=== PATIENT | male | born 2000 | race Two or more races ===

== ENCOUNTER 2023-01-26 13:39 | Outpatient (CLI) | payer OTHER | END 2023-01-26 13:40 | disposition critical access hospital (66) | LOC: EMS 13:39 | DX: S99.912A Unspecified injury of left ankle, initial encounter (principal); X50.9XXA Other and unspecified overexertion or strenuous movements or postures, initial encounter; Y92.414 Local residential or business street as the place of occurrence of the external cause | CPT/HCPCS: A0425; A0429 ==

== ENCOUNTER 2023-01-26 14:11 | Emergency (ER) | payer OTHER ==
--- NOTE | 2023-01-26 14:51 | XRAY Report ---
PROCEDURE: Ankle 3 View LT 4 INDICATIONS: Trauma TECHNIQUE: 3 views of the ankle were acquired. COMPARISON: None. FINDINGS: Bones: No fractures or dislocations. Ankle mortise is normally aligned. No suspicious bony lesions . Soft tissues: No tibiotalar joint effusion. Achilles tendon appears normal. IMPRESSION: No acute bony abnormality. Reviewed by: Omega Carter on 01/26/2023 1:50 PM ELADIO Approved by: Omega Carter on 01/26/2023 1:50 PM [facility] Station ID: [id number]
--- NOTE | 2023-01-26 15:56 | ED Physician Documentation ---
History of Present Illness - Stated complaint Stated Complaint: LT ANKLE INJ - Chief complaint Chief Complaint: Trauma Ext - Additonal information Additional information: 22-year-old male here for evaluation of acute left ankle pain sustained when he had an inversion injury stepping off a curb. No history of previous injury. Review of Systems Musculoskeletal: reports: Joint pain PD PAST MEDICAL HISTORY - Past Medical History Past Medical History: No - Past Surgical History Past Surgical History: No - Present Medications Home Medications: Ambulatory Orders Medication Instructions Recorded Confirmed No Known Home Medications 01/26/23 01/26/23 - Allergies Allergies/Adverse Reactions: Allergies Allergy/AdvReac Type Severity Reaction Status Date / Time No Known Drug Allergies Allergy Verified 01/26/23 14:22 - Social History Does the pt smoke?: No Smoking Status: Never smoker Does the pt drink ETOH?: No Does the pt have substance abuse?: No - Immunizations Immunizations are current?: Yes PD ED PE EXPANDED - Extremities Extremities: Left ankle (Moderate swelling and tenderness of the left lateral malleolus. Reduced rotational movement secondary to pain. No pain at the base of the fifth metatarsal, medial malleolus or Achilles. Neurovascular intact. 2+ DP pulse.) Results - Vitals Vitals: Vital Signs - 24 hr 01/26/23 14:18 Temperature 36.6 C Heart Rate 40 L Respiratory 15 Rate Blood Pressure 143/64 H O2 Saturation 100 Oxygen O2 Source Room air - Rads (name of study) left ankle Relevant Findings:: Final report received (no acute fracture, osseous lesion) PD Medical Decision Making - ED course Complexity details: reviewed results, d/w patient ED course: Inversion injury of the left ankle sustained when stepping off a curb. X-rays without obvious findings. Moderate tenderness and swelling of the lateral malleoli region. Suspect sprain though occult fracture not entirely ruled out. Patient given ankle stirrup splint and crutches. Discussed routine conservative care measures. Recommended that if not markedly better in 7 to 10 days consider repeat imaging to rule out acute/occult fracture. Departure - Departure Disposition: 01 Home, Self Care Clinical Impression: Sprain of ankle, left Qualifiers: Encounter type: initial encounter Involved ligament of ankle: unspecified ligament Qualified Code(s): S93.402A - Sprain of unspecified ligament of left ankle, initial encounter Condition: Stable Record reviewed to determine appropriate education?: Yes Instructions: ED Sprain Ankle Comments: The x-ray of your ankle does not show an obvious broken bone. You most likely have a sprain of this ankle. I would encourage you to wear the air splint when out of bed for about the next week. Use crutches to help with ambulation. You can take [id number] Tylenol and ibuprofen for ankle discomfort. With most simple sprains I would expect your symptoms to be getting better over the next week to 10 days. If your ability to bear weight and walk is not markedly improved by that time please follow closely with [facility] as it may benefit you to have the ankle demetrio-rayed to rule out an occult fracture that could have been missed today.
[2023-01-26 16:30] VITALS: BP 148/78; O2SAT 98
== END 2023-01-26 16:23 | disposition home or self-care (01) ==
LOC: ED 14:11
DX: S93.402A Sprain of unspecified ligament of left ankle, initial encounter (principal); X50.1XXA Overexertion from prolonged static or awkward postures, initial encounter
CPT/HCPCS: 99283